=== PATIENT | female | born 1975 | race African-American/Black ===

== ENCOUNTER 2016-07-21 10:15 | Emergency (ER) | payer MEDICARE, OTHER ==
[~2016-07-21] VITALS: Ht 162.6 cm; Wt 99.8 kg
[2016-07-21 10:26] VITALS: BP 151/93
[2016-07-21] MEDS ORDERED: DIPHTH,PERTUSS(ACELL),TET TOX 0.5 ML DISP.SYRIN. VAX IM ONE (10:45)
[2016-07-21] MEDS ORDERED: LIDOCAINE 1% / SOD BICARB 8.4% 20 ML VIAL. IJ ONE (10:45)
--- NOTE | 2016-07-21 10:45 | PHYS DOC ---
Past Medical History Past Medical History: Anxiety, Bipolar, High Cholesterol, Seizure, Schizophrenia, Other Additional Past Medical Histor: schizoaffective; scoliosis Past Surgical History: Other Additional Past Surgical Histo: back with aixa placement Alcohol Use: None Drug Use: None Adult General Chief Complaint Chief Complaint: LACERATION/AVULSION HPI HPI Patient is a 40 year old female presents to the emergency department stating that she went to get something out of the trash this morning when she cut the 5th finger on the left hand. Patients last tetanus immunization was 9 years ago. Bleeding is currently controlled, she has full ROM of the fingers with cap refill brisk < 2 seconds, good sensation noted. Review of Systems Review of Systems Constitutional: Denies fever or chills [] Eyes: Denies change in visual acuity, redness, or eye pain [] HENT: Denies nasal congestion or sore throat [] Respiratory: Denies cough or shortness of breath [] Cardiovascular: No additional information not addressed in HPI [] GI: Denies abdominal pain, nausea, vomiting, bloody stools or diarrhea [] : Denies dysuria or hematuria [] Musculoskeletal: Denies back pain or joint pain [] Integument: Denies rash or skin lesions. Laceration to the left 5th finger Neurologic: Denies headache, focal weakness or sensory changes [] Current Medications Current Medications Current Medications Medications (Trade) Dose Ordered Sig/Seth Start Time Stop Time Status Last Admin Dose Admin Diphtheria/ Tetanus/Acell Pertussis (Boostrix) 0.5 ml ONCE ONCE 07/21/16 10:45 07/21/16 10:46 DC 07/21/16 10:45 0.5 ML Lidocaine/Sodium Bicarbonate (Buffered Lidocaine 1%) 20 ml 1X ONCE 07/21/16 10:45 07/21/16 10:46 DC 07/21/16 10:44 20 ML Allergies Allergies Allergies Coded Allergies Type Severity Reaction Last Updated Verified clozapine Allergy Unknown 07/21/16 Yes divalproex sodium Allergy Unknown 07/21/16 Yes valproic acid Allergy Unknown 07/21/16 Yes Physical Exam Physical Exam Constitutional: Well developed, well nourished, no acute distress, non-toxic appearance. [] HENT: Normocephalic, atraumatic, bilateral external ears normal, oropharynx moist, no oral exudates, nose normal. [] Eyes: PERRLA, EOMI, conjunctiva normal, no discharge. [] Neck: Normal range of motion, no tenderness, supple, no stridor. [] Cardiovascular:Heart rate regular rhythm, no murmur [] Lungs & Thorax: Bilateral breath sounds clear to auscultation [] Skin: Warm, dry, no erythema, no rash. Laceration to the left 5th finger approx. size 1.5 cm with bleeding controlled. Back: No tenderness Extremities: No tenderness, no cyanosis, no clubbing, ROM intact, no edema. [] Neurologic: Alert and oriented X 3, normal motor function, normal sensory function, no focal deficits noted. [] Psychologic: Affect normal, judgement normal, mood normal. [] Current Patient Data Vital Signs Vital Signs Date Time Temp Pulse Resp B/P Pulse Ox O2 Delivery O2 Flow Rate FiO2 07/21/16 10:26 97.9 110 18 151/93 96 Room Air 97.9 EKG EKG [] Radiology/Procedures Radiology/Procedures [] Course & Med Decision Making Course & Med Decision Making Pertinent Labs and Imaging studies reviewed. (See chart for details) Patient and caregiver were provided with discharge instructions. Patient was instructed to keep the area clean and dry clean the site with soap and water twice a day and apply antibiotic ointment. Signs symptoms of infection was provided to the patient. Both patient and caregiver agree with discharge instructions treatment regimens and follow-up recommendations. [] Dragon Disclaimer Dragon Disclaimer This electronic medical record was generated, in whole or in part, using a voice recognition dictation system. Departure Departure Impression: Primary Impression: Laceration of finger of left hand Disposition: 01 HOME, SELF-CARE Condition: STABLE Referrals: IGNACIA HADLEY MD (PCP) Patient Instructions: Laceration Care, Adult, [id number] Additional Instructions: Activity as tolerated Tylenol or Ibuprofen for pain and discomfort Ice packs on 20 minutes and off 20 minutes several times a day Elevation as much as possible Keep the area clean and dry. Clean the site twice a day with soap and water, apply antibiotic ointment to the site Watch for signs and symptoms of infection: redness, warmth, tenderness, or any yellow/greenish drainage that may occur if this should happen followup with primary care provider immediately Otherwise followup in 11-04 for suture removal Return to emergency department as needed for signs and symptoms that become worse. Laceration/Wound Repair Laceration/Wound Repair : Wound Location: upper extremity Wound's Depth, Shape: superficial Wound Length (cm): 1 Wound Explored: clean Irrigated w/ Saline (ccs): 80 Betadine Prep?: Yes Anesthesia: 1% Lidocaine Volume Anesthetic (ccs): 3 Wound Debrided: moderate Wound Repaired With: sutures Suture Size/Type: 4:0, nylon Number of Sutures: 4 Progress Digital block to the left fifth finger was obtained with 1% lidocaine. Site was irrigated with 80 mL of normal saline. Site was then cleaned with Betadine. 4-0 nylon 4 interrupted sutures placed. Dressing applied by nursing staff. SALMA AHMADI APRN Jul 21, 2016 10:45
== END 2016-07-21 11:10 | disposition home or self-care (01) ==
LOC: ER 10:15
DX: S61.217A Laceration without foreign body of left little finger without damage to nail, initial encounter (principal); F20.9 Schizophrenia, unspecified; E78.00 Pure hypercholesterolemia, unspecified; F41.9 Anxiety disorder, unspecified; F31.9 Bipolar disorder, unspecified; Z88.8 Allergy status to other drugs, medicaments and biological substances; W26.9XXA Contact with unspecified sharp object(s), initial encounter; Y93.89 Activity, other specified; Y92.89 Other specified places as the place of occurrence of the external cause; Y99.8 Other external cause status
CPT/HCPCS: 12001; 90471; 90715; 99283-25